=== PATIENT | female | born 1960 | race Caucasian/White ===

== ENCOUNTER 2022-08-25 18:13 | Emergency (ER) | payer OTHER ==
[2022-08-25 18:30] VITALS: TEMP 97.9
[2022-08-25] MEDS ORDERED: KETOROLAC 15 MG/ML 1 ML VIAL IM STA (20:01)
[2022-08-25] MEDS ORDERED: traMADol 50 MG STARTER PACK 3 TAB BTL PO STA (20:01)
[2022-08-25] MEDS ORDERED: CYCLOBENZAPRINE 10MG STARTER 3 TAB BTL PO STA (20:01)
--- NOTE | 2022-08-25 20:58 | XR ---
EXAMINATION TYPE: XR lumbosacral spine min 4V DATE OF EXAM: 08/25/2022 8:41 PM INDICATION: Patient age:Female; 62 years old; Reason for study: back pain; PHH. COMPARISON: No relevant priors TECHNIQUE: Frontal, lateral , bilateral oblique and coned in L5-S1 lateral views of the spine. FINDINGS: No evidence of any acute osseous pathology. No evidence of loss of vertebral body height i s seen. Transitional morphology of L5. Grade 1 anterolisthesis of L3 on L4. Multilevel intervertebral disc height loss, predominately affecting the lower lumbar spine at L4-L5 and L5-S1. Multilevel oste oarthritic changes. Surgical clips are noted in the right upper quadrant. Aortic vascular calcifications are noted. IMPRESSION: 1. No acute osseous process. 2. Multilevel discogenic and degenerative changes of the lumbar spine. 3. Grade 1 anterolisthesis of L3 on L4.
--- NOTE | 2022-08-25 21:18 | ED ---
General Adult HPI - General Chief complaint: Back Pain/Injury Stated complaint: leg/back pain Time Seen by Provider: 08/25/22 19:45 Source: patient Mode of arrival: ambulatory Limitations: no limitations - History of Present Illness Initial comments: 62-year-old female with past medical history of diabetes who presents to emergency room with reported back pain. States that the pain started on Friday. Located over the left flank and radiates into her left leg. Report to some numbness on the lateral aspect of her left leg. Pain goes down to her k nee. It is worse with movement and better with rest. Denies history of similar pain in the past. No trauma. Denies saddle anesthesia. No bowel or bladder incontinence. She saw her primary care physician who gave her a steroid shot, Toradol shot and placed her on steroids in the outpatient setting. Patient reports that she has not had any relief in her symptoms. Denies fevers. No history of drug use. Patient is able to ambulate however painful. No other alleviating, precipitating or modifying factors - Related Data Home Medications Medication Instructions Recorded Confirmed Levothyroxine Sodium [Synthroid] 100 mcg PO DAILY 07/15/14 07/15/14 Phentermine HCl [Adipex-P] 37.5 mg PO QAM 07/15/14 07/15/14 Previous Rx's Medication Instructions Recorded Cyclobenzaprine [Flexeril] 10 mg PO TID PRN #15 tab 08/25/22 traMADol HCl [Ultram] 50 mg PO Q6H PRN #12 tab 08/25/22 Allergies Allergy/AdvReac Type Severity Reaction Status Date / Time aspirin Allergy Vomiting Verified 08/25/22 18:30 Penicillins Allergy Rash/Hives Verified 08/25/22 18:30 Review of Systems ROS Statement: Those systems with pertinent positive or pertinent negative responses have been documented in the HPI. ROS Other: All systems not noted in ROS Statement are negative. Past Medical History Past Medical History: Diabetes Mellitus, Hyperlipidemia, Thyroid Disorder Additional Past Medical History / Comment(s): Childhood asthma, Thyroid nodules, hypothyroid History of Any Multi-Drug Resistant Organisms: None Reported Past Surgical History: Cholecystectomy, Tonsillectomy, Tubal Ligation Past Anesthesia/Blood Transfusion Reactions: No Reported Reaction Past Psychological History: No Psychological Hx Reported Smoking Status: Current every day smoker Past Alcohol Use History: None Reported Past Drug Use History: None Reported - Past Family History Father Family Medical History: Thyroid Disorder Additional Family Medical History / Comment(s): hypothyroid General Exam Limitations: no limitations General appearance: alert, in no apparent distress Head exam: Present: atraumatic, normocephalic, normal inspection Eye exam: Present: normal appearance, PERRL, EOMI. Absent: scleral icterus, c onjunctival injection, periorbital swelling ENT exam: Present: normal exam, mucous membranes moist Neck exam: Present: normal inspection. Absent: tenderness, meningismus, lymphadenopathy Respiratory exam: Present: normal lung sounds bilaterally. Absent: respiratory distress, wheezes, rales, rhonchi, stridor Cardiovascular Exam: Present: regular rate, normal rhythm, normal heart sounds. Absent: systolic murmur, diastolic murmur, rubs, gallop, clicks GI/Abdominal exam: Present: soft, normal bowel sounds. Absent: distended, tenderness, guarding, rebound, rigid Extremities exam: Present: normal inspection, full ROM, normal capillary refill. Absent: tenderness, pedal edema, joint swelling, calf tenderness Back exam: Present: tenderness (To palpation of the left flank and paraspinal muscles on the left in the lumbar region. 5 out of 5 muscle strength in the bilateral lower extremities. 2+ DP and PT pulses. Intact sensation over the medial, lateral dorsal aspect) Neurological exam: Present: alert, oriented X3, CN II-XII intact Psychiatric exam: Present: normal affect, normal mood Skin exam: Present: warm, dry, intact, normal color. Absent: rash Course Vital Signs 08/25/22 08/25/22 18:27 21:34 Temperature 97.9 F Pulse Rate 97 66 Respiratory 20 16 Rate Blood Pressure 151/79 140/82 O2 Sat by Pulse 99 98 Oximetry Medical Decision Making - Medical Decision Making Was pt. sent in by a medical professional or institution (, PA, NAVIGATION TEACHER, urgent care, hospital, or usp...) When possible be specific @ -No Did you speak to anyone other than the patient for history (EMS, parent, family, police, friend...)? What history was obtained from this source @ -No Did you review nursing and triage notes (agree or disagree)? Why? @ -I reviewed and agree with nursing and triage notes Were old charts reviewed (outside hosp., previous admission, EMS record, old EKG, old radiological studies, urgent care reports/EKG's, usp records)? Report findings @ -No old charts were reviewed Differential Diagnosis (chest pain, altered mental status, abdominal pain women, abdominal pain men, vaginal bleeding, weakness, fever, dyspnea, syncope, headache, dizziness, GI bleed, back pain, seizure, CVA, palpatations, mental health, musculoskeletal)? @ -Differential Back Pain: Strain, zoster, cauda equina syndrome, epidural abscess, vertebral osteomyelitis, discitis, fracture, subluxation, disc herniation, DJD, spinal stenosis, dissection, AAA, pancreatitis, peptic ulcer disease, pyelonephritis, kidney stone, this is not meant to be an all-inclusive list. EKG interpreted by me (3pts min.). @ -Not done X-rays interpreted by me (1pt min.). @ -Interpreted by myself and demonstrates no acute process. CT interpreted by me (1pt min.). @ -None done U/S interpreted by me (1pt. min.). @ -None done What testing was considered but not performed or refused? (CT, X-rays, U/S, labs)? Why? @ -None What meds were considered but not given or refused? Why? @ -None Did you discuss the management of the patient with other professionals (professionals i.e. , PA, NAVIGATION TEACHER, lab, RT, psych nurse, social worker aide, bun icer, teacher, supply requirements officer, senior case manager)? Give summary @ -No Was smoking cessation discussed for >3mins.? @ -No Was critical care preformed (if so, how long)? @ -No Were there social determinants of health that impacted care today? How? (Homelessness, low income, unemployed, alcoholism, drug addiction, transportation, low edu. Level, literacy, decrease access to med. care, intermediate, rehab)? @ -No Was there de-escalation of care discussed even if they declined (Discuss DNR or withdrawal of care, Hospice)? DNR status @ -No What co-morbidities impacted this encounter? (DM, HTN, Smoking, COPD, CAD, Cancer, CVA, ARF, Chemo, Hep., AIDS, mental health diagnosis, sleep apnea, morbi d obesity)? @ -None Was patient admitted / discharged? Hospital course, mention meds given and route, prescriptions, significant lab abnormalities, going to OR and other pertinent info. @ -Arrival patient is placed in room 20. A thorough history and physical exam was performed here patient was given a shot of Toradol IM. She is sent for x- ray as she has continued symptoms while failing treatment at home. X-rays reviewed with no acute process identified. She was given an Ultram and Flexeril starter pack. Instructed to alternate taking these medications and out as they both may make her sedated. She will follow up with her primary care doctor for further evaluation and management. Return for any new or worsening symptoms. She was agreeable to this plan and she was discharged home in stable condition Undiagnosed new problem with uncertain prognosis? @ -yes Drug Therapy requiring intensive monitoring for toxicity (Heparin, Nitro, Insulin, Cardizem)? @ -No Were any procedures done? @ -No Diagnosis/symptom? @ -Acute lumbosacral pain, acute sciatica left Acute, or Chronic, or Acute on Chronic? @ -Acute Uncomplicated (without systemic symptoms) or Complicated (systemic symptoms)? @ -uncomplicated Side effects of treatment? @ -Sedation Exacerbation, Progression, or Severe Exacerbation? @ -No Poses a threat to life or bodily function? How? (Chest pain, USA, SC, pneumonia, PE, COPD, DKA, ARF, appy, cholecystitis, CVA, Diverticulitis, Homicidal, Suicidal, threat to staff... and all critical care pts) @ -No Disposition Clinical Impression: Lumbar back pain, Sciatica Disposition: HOME SELF-CARE Condition: Stable Instructions (If sedation given, give patient instructions): Acute Low Back Pain (ED) Additional Instructions: Please take the medications as directed however separate them by 2 hours. Follow-up with your primary care doctor. Return for any new or worsening symptoms Prescriptions: Cyclobenzaprine [Flexeril] 10 mg PO TID PRN #15 tab PRN Reason: Muscle Spasm traMADol HCl [Ultram] 50 mg PO Q6H PRN #12 tab PRN Reason: Pain Is patient prescribed a controlled substance at d/c from ED?: Yes When asked, does pt state using other controlled substances?: No If prescribed controlled substance>3 days was MAPS reviewed?: Prescribed <3 Days Referrals: Desmond Joshi Jr, [Primary Care Provider] - 1-2 days Time of Disposition: 21:20
[2022-08-25 21:35] VITALS: BP 140/82; PULSE 66; RESP 16
== END 2022-08-25 21:35 | disposition home or self-care (01) ==
LOC: EC 18:13
DX: M54.42 Lumbago with sciatica, left side (principal); E11.9 Type 2 diabetes mellitus without complications; E03.9 Hypothyroidism, unspecified; F17.200 Nicotine dependence, unspecified, uncomplicated; Z88.0 Allergy status to penicillin; Z88.6 Allergy status to analgesic agent; Z79.890 Hormone replacement therapy; Z79.899 Other long term (current) drug therapy
CPT/HCPCS: 99283 ×2; 96372 ×2; 72110; J1885

== ENCOUNTER → 2022-10-18 | Outpatient (CLI) | payer OTHER ==
--- NOTE | 2022-10-18 10:36 | CT ---
EXAMINATION TYPE: CT lumbar spine wo con DATE OF EXAM: 10/18/2022 COMPARISON: None HISTORY: 62-year-old female M43.16 SPONDYLOLISTHESIS, M62.838 SPASM, M54.42, Chronic low back pain ra diating down left leg and fall on 08/25/22. TECHNIQUE: Contiguous axial scanning of the lumbar spine without IV contrast. Coronal and sagittal re constructions performed. CT DLP: 1587 mGycm Automated exposure control for dose reduction was used. FINDINGS: Sigmoid diverticulosis. Cholecystectomy clips. There are nonspecific 1.3 cm hypodensity in the spleen . There is hypertrophic facet arthropathy throughout especially mid to lower lumbar spine. Mild multilevel degenerative disc disease with bulging discs throughout. More moderate degenerative d isc disease L4-L5 with desiccated, narrowed, and bulging disc. Degenerative grade 1 anterolisthesis L3-L4. Remaining alignment is maintained. Vertebral body heights are preserved. There is underlying mild congenital spinal canal narrowing with AP canal dimension of 1.2 cm. Overall changes results in focal moderate spinal canal stenosis at L3-L4 and L4-L5. Mild spinal canal narrowing and L2-L3. On the left, changes result in moderate focal neuroforaminal stenosis at L2-L5 levels, mild at L5-S1. On the right, changes located in moderate neuroforaminal stenosis at L4-L5 and mild at additional lev els. IMPRESSION: 1. ADVANCED HYPERTROPHIC FACET ARTHROPATHY THROUGHOUT WITH DEGENERATIVE GRADE 1 ANTEROLISTHESIS AT L3 -L4. 2. MODERATE DEGENERATIVE DISC DISEASE L4-L5 AND MILD ELSEWHERE THROUGHOUT THE LUMBAR SPINE. 3. 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 4. OVERALL MODERATE FOCAL SPINAL CANAL STENOSES AT BOTH L3-L4 AND L4-L5. MILD AT L2-L3. 5. MODERATE NEURAL FORAMINAL STENOSES ON THE LEFT FROM L2 THROUGH L5 LEVELS AND ON THE RIGHT AT L4-L5 .
--- NOTE | 2022-10-18 10:42 | CT ---
EXAMINATION TYPE: CT hip LT wo con DATE OF EXAM: 10/18/2022 COMPARISON: None HISTORY: 62-year-old female M43.16 SPONDYLOLISTHESIS, M62.838 SPASM, M54.42, Chronic low back pain r adiating down left leg and fall on 08/25/22. TECHNIQUE: Contiguous axial scanning of the left hip without IV contrast. Coronal and sagittal recons tructions performed. 3-D reconstructions generated on a dedicated workstation. CT DLP: 1045.5 mGycm Automated exposure control for dose reduction was used. FINDINGS: Prominent distention of the urinary bladder. There appears to be some pelvic floor relaxation. Sigmoi d diverticulosis. Mild degenerative change at the left SI joint. Mild degenerative change at the left hip with marginal spurring. No acute fracture, subluxation, disl ocation is seen. No hip joint effusion. IMPRESSION: 1. MILD LEFT HIP OA. 2. ADDITIONAL MILD LEFT SI JOINT OA. 3. NO ACUTE OSSEOUS ABNORMALITY SEEN. 4. THERE APPEARS TO BE SOME UNDERLYING PELVIC FLOOR RELAXATION. SIGMOID DIVERTICULOSIS.
== END | disposition home or self-care (01) ==
LOC: RADCTMAIN 07:50
PROVIDERS: ATTEND Family Medicine
DX: M51.16 Intervertebral disc disorders with radiculopathy, lumbar region (principal); M99.73 Connective tissue and disc stenosis of intervertebral foramina of lumbar region; M43.16 Spondylolisthesis, lumbar region; M62.838 Other muscle spasm; M46.1 Sacroiliitis, not elsewhere classified; K57.30 Diverticulosis of large intestine without perforation or abscess without bleeding; M16.12 Unilateral primary osteoarthritis, left hip
CPT/HCPCS: 72131

== ENCOUNTER → 2023-02-18 | Outpatient (CLI) | payer OTHER ==
[2023-02-18 09:27] LABS: African American GFR (CKD) >90 (>60 ml/min/1.73 sqM); Blood Urea Nitrogen 15 mg/dL (7-17); Non-African American GFR(CKD) 89 (>60 ml/min/1.73 sqM)
--- NOTE | 2023-02-18 10:36 | CT ---
EXAMINATION TYPE: CT abdomen wo/w con DATE OF EXAM: 02/18/2023 COMPARISON: HISTORY: Cyst of spleen, incidental finding from lumbar CT CT DLP: 1810.70 mGycm CONTRAST: CT scan of the abdomen is performed with Oral Contrast and with IV Contrast, patient injected with 10 0 mL of Isovue 300. FINDINGS: LUNG BASES-: No visible nodule. No infiltrate. LIVER/GB: The gallbladder is surgically absent. No space occupying hepatic lesion. Biliary tree is of normal caliber. PANCREAS: No inflammation. No distinct mass. SPLEEN: 1 cm splenic cyst noted. No additional splenic lesions seen. Spleen is of normal caliber. ADRENALS: No nodule. No thickening. KIDNEYS/BLADDER: No hydronephrosis. No nephrolithiasis. No distinct renal mass. Urinary bladder g rossly unremarkable. BOWEL: Last bowel loops are of normal caliber. No abnormal inflammatory process seen. LYMPH NODES: No greater than 1cm abdominal or pelvic lymph nodes are appreciated. AORTA: No significant abnormality. OSSEOUS STRUCTURES: No significant abnormality is seen. OTHER: No significant additional abnormality is seen. IMPRESSION: 1. 1 cm simple cyst of the spleen.
== END | disposition home or self-care (01) ==
LOC: RADCTMAIN 08:26
PROVIDERS: ATTEND Family Medicine
DX: D73.4 Cyst of spleen (principal)
CPT/HCPCS: 82565; 84520; 74170; 36415; Q9967

== ENCOUNTER 2023-10-03 13:02 | Day surgery (SDC) | payer OTHER ==
[2023-09-30 14:40] VITALS: BMI 35.2
[2023-10-03 13:50] VITALS: TEMP 97
[2023-10-03] MEDS: LACTATED RINGERS 1,000 ML IV SCH (13:55)
[2023-10-03 14:00] LABS: Glucose,Whole Blood 103 mg/dL (70-110)
[2023-10-03] MEDS ORDERED: PROPOFOL 10 MG/ML 20 ML VIAL IV ONE (14:35)
--- NOTE | 2023-10-03 15:04 | P.PCN ---
Date of Procedure: 10/03/23 Procedure(s) Performed: BRIEF HISTORY: Patient is a 63-year-old pleasant white female scheduled for an elective colonoscopy as a part of screening for colon cancer/positive Cologuard. PROCEDURE PERFORMED: Colonoscopy with snare polypectomy. PREOPERATIVE DIAGNOSIS: Screening for colon cancer/positive:. IV sedation per Anesthesia. PROCEDURE: After informed consent was obtained, the patient, was brought into the endoscopy unit. IV sedation was administered by Anesthesia under continuous monitoring. Digital rectal examination was normal. Initially the Olympus CF-160 flexible video colonoscope was then inserted in the rectum, gradually advanced into the cecum without any difficulty. Careful examination was performed as the scope was gradually being withdrawn. Ileocecal valve and the appendiceal orifice were visualized and appeared normal. Prep was excellent. Mucosa of the cecum, ascending colon, appeared normal. The transverse colon at 70 cm from the anal verge there was a 2 cm broad-based polyp removed by snare polypectomy. In the sigmoid colon there was a 1 cm polyp removed by snare polypectomy. In the rectosigmoid colon there was a 1.5 cm polyp and a 5 mm x 2 polyps removed by snare polypectomy. Moderate sigmoid diverticulosis seen. Rest of the transverse colon, descending colon, sigmoid colon, and rectum appeared normal. Retroflexion was performed in the rectum and no lesions were seen. The patient tolerated the procedure well. IMPRESSION: 2 cm broad-based mid transverse colon polyp type 70 cm from the anal verge s/p piecemeal snare polypectomy and complete polypectomy 1 cm sigmoid colon polyp status post polypectomy 1.5 cm and 5 mm x 2 rectosigmoid polyp status post polypectomy 40 sigmoid diverticulosis RECOMMENDATIONS: Findings of this examination were discussed with the patient as well as her family.. She was advised to follow-up with the biopsy results. If the biopsy reveals adenoma she can have repeat colonoscopy in 3 years.
[2023-10-03] MEDS: ACETAMINOPHEN TAB 500 MG TAB PO STA (15:35)
[2023-10-03 15:52] VITALS: RESP 18
[2023-10-03 15:54] VITALS: BP 149/87; PULSE 78
== END 2023-10-03 16:05 | disposition home or self-care (01) ==
LOC: ORWHC2ENDO 13:02
PROVIDERS: ATTEND Internal Medicine Gastroenterology
DX: D12.3 Benign neoplasm of transverse colon (principal); D12.7 Benign neoplasm of rectosigmoid junction; K63.5 Polyp of colon; K57.30 Diverticulosis of large intestine without perforation or abscess without bleeding; J45.909 Unspecified asthma, uncomplicated; E11.69 Type 2 diabetes mellitus with other specified complication; E78.5 Hyperlipidemia, unspecified; E03.9 Hypothyroidism, unspecified; Z88.0 Allergy status to penicillin; Z88.6 Allergy status to analgesic agent; F17.200 Nicotine dependence, unspecified, uncomplicated; Z79.890 Hormone replacement therapy; Z79.84 Long term (current) use of oral hypoglycemic drugs; Z79.899 Other long term (current) drug therapy
CPT/HCPCS: 88305; 45385; J2704